=== PATIENT | male | born 1960 | race Caucasian/White ===

== ENCOUNTER 2018-10-15 07:10 | Day surgery (SDC) | payer BC ==
[2018-10-12 17:01] VITALS: BMI 33.1
[2018-10-15] VITALS (16 sets, daily range): BP systolic 100–139; BP diastolic 57–90; PULSE 42–68; RESP 16–28; Ht 177.8 cm; Wt 105.2 kg
[~2018-10-15] VITALS: Ht 177.8 cm; Wt 105.2 kg
[~2018-10-15 07:10] MED LIST: CEFAZOLIN 2 GM/50 ML (PMX) 50 ML IVPB ONE; SOD CHLORIDE 0.9% 1,000 ML IV ONE
[2018-10-15] MEDS ORDERED: BUPIVACAINE 0.25% (MPF) 30 ML INJ ONE (08:42)
--- NOTE | 2018-10-15 08:46 | PREAC ---
Date/Time of Note Date/Time of Note DATE: 10/15/18 TIME: 08:44 Anesthesia Eval and Record Evaluation Time Pre-Procedure Interview DATE: 10/15/18 TIME: 08:44 Age 57 Sex male NPO: 8 hrs Preoperative diagnosis ventral hernia Planned procedure laparoscopic ventral hernia repair Past Medical History Past Medical History: Includes GI: GERD, Obesity Surgery & Anesthesia Issues No known issue Meds Anticoagulation: No Beta Ascencion within 24 hr: No Reason Beta Ascencion not given: Pt. not on B-Ascencion No Active Prescriptions or Reported Meds Current Medications Sodium Chloride 1,000 ml @ 75 mls/hr [id number] ONCE IV Last administered on 10/15/18at 08:01; Admin Dose 75 MLS/HR; Start 10/15/18 at 07:00; Stop 10/15/18 at 20:19 Meds reviewed: Yes Allergies Coded Allergies: No Known Allergy (Unverified , 10/15/18) Allergies Reviewed: Yes Labs/Studies Labs Reviewed: Reviewed by anesthesiologist test: N/A Pre-procedure Exam Last vitals Vital Signs Date Temp Pulse Resp B/P (MAP) Pulse Ox O2 O2 Flow FiO2 Time Delivery Rate 10/15/18 97.3 61 16 121/90 97 Room Air 07:56 (100) Airway: Adequate mouth opening, Adequate thyromental dist Mallampati: Mallampati II Teeth: Normal Lung: Normal Heart: Normal ASA Physical Status ASA physical status: 2 Emergency: None Planned Anesthetic General/MAC: LMA Planned Pain Management Parenteral pain med Pre-operative Attestations Prior to commencing anesthesia and surgery, the patient was re-evaluated, there was verification of: *The patient's identity *The results of appropriate recent lab work and preoperative vital signs *The above evaluation not changing prior to induction *Anesthetic plan, risk benefits, alternative and complications discussed with patient/family; questions answered; patient/family understands, accepts and wishes to proceed. KAMAR MONTERROSO Oct 15, 2018 08:46
[2018-10-15] MEDS ORDERED: LIDOCAINE 2% (SDV) 5 ML INJ ONE (08:50)
[2018-10-15] MEDS ORDERED: PROPOFOL 20 ML ONE (08:50)
[2018-10-15] MEDS ORDERED: ROCURONIUM 50 MG INJ ONE (08:50)
[2018-10-15] MEDS ORDERED: CEFAZOLIN 1 GM INJ ONE (08:54)
[2018-10-15] MEDS ORDERED: POLYMYXIN/BACITRACIN 1L IRRIG IRR ONE ×2 (09:43→10:10)
[2018-10-15] MEDS ORDERED: GLYCOPYRROLATE 0.4 MG INJ ONE (10:05)
[2018-10-15] MEDS ORDERED: NEOSTIGMINE 3 MG/3 ML SYRINGE ONE (10:05)
--- NOTE | 2018-10-15 10:10 | OPR ---
Date/Time of Note Date/Time of Note DATE: 10/15/18 TIME: 10:07 Operative Report Procedure Date: Oct 15, 2018 Preoperative Diagnosis incarcerated ventral hernia Postoperative Diagnosis same Operation/Procedure Performed 1. laparoscopic ventral hernia repair 2. implantation of 15 x 15 cm polypropylene mesh 3. laparoscopic epigastric hernia repair 4. implantation of 15 x 15 cm polypropylene mesh 5. therapeutic injection of subcutaneous local anesthesia 6. laparoscopic lysis of adhesions Surgeon see signature line Traffic Enumerator none Anesthesia Type: general Estimated Blood Loss: 0 - 10 ml's Transfusion none Specimen none Grafts/Implants none Complications none Pt Condition Post Procedure: stable Indications This is a 57-year-old male with ventral hernias x2. He request surgical repair. Risks alternatives benefits of procedure were discussed the patient. Patient expressed understanding consents to that operation. Procedure Description Patient is taken to the OR and prepped and draped in usual sterile fashion. Surgical timeout is performed. I been depressed given. Left upper quadrant 5 mm transverse incision is made with a 15 blade. Using a 5 mm optical trocar optical entry is performed. Pneumoperitoneum is stands. Left flank pulmonary optical trochars placed under direct visualization. Left lower quadrant 5- minute apical trochars placed under direct visualization. Upon initial inspection there is some adhesions to the incarcerated ventral hernia x2. Laparoscopic lysis of adhesions performed. This allowed mobilization of incarcerated hernias. 2 hernias identified. These were manually reduced. 2 defect is identified however there is small and primary closure was not necessary. 2 were ventral hernia and epigastric hernia. These were then covered with laparoscopic placement of the 15 x 15 polypropylene mesh. This is cured in place with secure strap. An additional piece of 15 x 15 cm polyp propylene mesh was needed to allow adequate coverage of the second hernia. This is also acute in place with secure strap. Approximate 4 to 5 cm coverage in all directions was ensured of the hernias. Good hemostasis status. All ports removed under direct visualization. Skin was closed and skin param. Therapy secondary to local anesthesia was injected at the incision site. Dressings were applied. Brii LAIRD Oct 15, 2018 10:10
[2018-10-15] MEDS ORDERED: POLYMYXIN/BACITRACIN 1L IRRIG ONE (10:12)
--- NOTE | 2018-10-15 10:13 | PAC ---
Date/Time of Note Date/Time of Note DATE: 10/15/18 TIME: 10:12 Post-Anesthesia Notes Post-Anesthesia Note Last documented vital signs Vital Signs Date Temp Pulse Resp B/P (MAP) Pulse Ox O2 O2 Flow FiO2 Time Delivery Rate 10/15/18 97.3 61 16 121/90 97 Room Air 1012 (100) Activity: WNL Respiratory function: WNL Cardiovascular function: WNL Mental status: Baseline Pain reasonably controlled: Yes Hydration appropriate: Yes Nausea/Vomiting absent: Yes KAMAR MONTERROSO Oct 15, 2018 10:13
[2018-10-15] MEDS ORDERED: FENTAnyl 50 MCG/ML VIAL ONE (10:18)
[2018-10-15] MEDS ORDERED: MEPERIDINE 25 MG INJ ONE (10:18)
[2018-10-15] MEDS: FENTAnyl 50 MCG/ML VIAL IV PRN ×2 (10:23→10:42)
[2018-10-15] MEDS ORDERED: EPHEDrine 25 MG/5 ML SYG IV PRN (10:30)
[2018-10-15] MEDS ORDERED: ALBUTEROL 0.083% (NEB) 2.5 MG/3 ML AMP HHN PRN (10:30)
[2018-10-15] MEDS ORDERED: DIPHENHYDRAMINE 50 MG INJ IV PRN (10:30)
[2018-10-15] MEDS ORDERED: HYDROCODONE/APAP (5/325) TAB PO ONE ×2 (10:30)
[2018-10-15] MEDS ORDERED: hydrALAzine 20 MG INJ IV PRN (10:30)
[2018-10-15] MEDS ORDERED: ONDANSETRON 4 MG INJ IV PRN (10:30)
[2018-10-15] MEDS ORDERED: LABETALOL HCL 20MG INJ IV PRN (10:30)
[2018-10-15] MEDS ORDERED: KETOROLAC 30 MG INJ IV PRN (10:30)
[2018-10-15] MEDS ORDERED: OXYCODONE/ACETAMINOPHEN (5/325) TAB PO PRN ×2 (10:30)
[2018-10-15] MEDS ORDERED: HYDROmorphONE 1 MG/5 ML IV SYRINGE IV PRN ×2 (10:30)
[2018-10-15] MEDS ORDERED: FENTAnyl 50 MCG/ML VIAL IV PRN ×2 (10:30)
[2018-10-15] MEDS ORDERED: MEPERIDINE 25 MG INJ IV PRN (10:30)
[2018-10-15] MEDS: HYDROmorphONE 1 MG/5 ML IV SYRINGE IV PRN ×2 (10:47→10:56)
== END 2018-10-15 12:23 | disposition home or self-care (01) ==
LOC: SDS 07:10
PROVIDERS: ATTEND Surgery
DX: K43.6 Other and unspecified ventral hernia with obstruction, without gangrene (principal)
CPT/HCPCS: 49653; J0690; J1170; J1885; J2175; J2710; J3010; Z7512; Z7610